=== PATIENT | male | born 1985 | race American Indian/Alaskan Native ===

== ENCOUNTER 2018-07-12 08:38 | Emergency (ER) | payer BC, OTHER | END 2018-07-12 10:27 | disposition home or self-care (01) | LOC: JERFT 08:38 ==

== ENCOUNTER 2018-07-13 21:36 | Emergency (ER) | payer BC | END 2018-07-13 22:07 | disposition home or self-care (01) | LOC: JERFT 21:36 ==

== ENCOUNTER 2020-04-23 15:51 | Emergency (ER) | payer BC ==
[2020-04-23 16:15] VITALS: BP 126/82; PULSE 94; TEMP 98.2; BMI 28.1
[2020-04-23] MEDS ORDERED: LIDOCAINE HCL 1%, 10 MG/ML (20ML VIAL) ONE ×2 (16:47→17:03)
[2020-04-23] MEDS ORDERED: LIDOCAINE HCL 1%, 10 MG/ML (50 mL VIAL) SQ ONE (16:47)
== END 2020-04-23 17:56 | disposition home or self-care (01) ==
LOC: FER 15:51
DX: L72.3 Sebaceous cyst (principal)
CPT/HCPCS: 99284-25

== ENCOUNTER 2020-08-21 23:03 | Emergency (ER) | payer BC ==
[2020-08-21 23:14] VITALS: BP 111/68; PULSE 112; TEMP 100; BMI 28.1
== END 2020-08-21 23:33 | disposition home or self-care (01) ==
LOC: FER 23:03
DX: S61.412A Laceration without foreign body of left hand, initial encounter (principal)
CPT/HCPCS: 99281-25

== ENCOUNTER 2020-12-28 12:53 | Emergency (ER) | payer OTHER, BC ==
[2020-12-28 13:15] VITALS: BP 130/82; PULSE 102; TEMP 97.8; BMI 28.1
== END 2020-12-28 13:24 | disposition home or self-care (01) ==
LOC: JERFT 12:53
DX: S09.90XA Unspecified injury of head, initial encounter (principal); S00.83XA Contusion of other part of head, initial encounter; W22.8XXA Striking against or struck by other objects, initial encounter
CPT/HCPCS: 99281-25

== ENCOUNTER 2021-04-07 10:10 | Emergency (ER) | payer OTHER, BC ==
[2021-04-07 10:33] VITALS: BP 129/85; PULSE 105; TEMP 97.9; BMI 27.3
[2021-04-07] MEDS ORDERED: DIPHTH,PERTUSS(ACELL),TET 0.5 ML DISP.SYRIN IM ONE ×2 (10:51→11:21)
== END 2021-04-07 11:27 | disposition home or self-care (01) ==
LOC: JER 10:10 → JERFT 10:10
PROC: 3E0234Z Introduction of Serum, Toxoid and Vaccine into Muscle, Percutaneous Approach (ICD-10-PCS; principal; 2021-04-07)
DX: S60.416A Abrasion of right little finger, initial encounter (principal)
CPT/HCPCS: 73130-TC-RT-FY; 90715; 99283-25

== ENCOUNTER 2021-04-09 17:17 | Emergency (ER) | payer BC, OTHER ==
[2021-04-09 17:29] VITALS: BP 126/80; PULSE 100; TEMP 99; BMI 27.3
[2021-04-09] MEDS ORDERED: LIDOCAINE 5% TOPICAL PATCH TP ONE (18:16)
[2021-04-09] MEDS ORDERED: IBUPROFEN 400 MG TABLET (FP) PO ONE ×2 (18:24→18:32)
[2021-04-09] MEDS ORDERED: LIDOCAINE 5% TOPICAL PATCH ONE (18:32)
[2021-04-09] MEDS ORDERED: LIDOCAINE PATCH REMOVAL MC SCH (22:00)
== END 2021-04-09 19:12 | disposition home or self-care (01) ==
LOC: FER 17:17 → SUPCPDRO 17:17 → FER 19:12
DX: R07.81 Pleurodynia (principal)
CPT/HCPCS: 71046-TC-FY; 99283-25

== ENCOUNTER 2021-05-27 11:56 | Emergency (ER) | payer BC ==
[2021-05-27 12:00] VITALS: BP 136/91; PULSE 82; TEMP 98; BMI 27.3
== END 2021-05-27 17:22 | disposition home or self-care (01) ==
LOC: JERFT 11:56
DX: F41.9 Anxiety disorder, unspecified (principal); F32.9 Major depressive disorder, single episode, unspecified
CPT/HCPCS: 99281-25

== ENCOUNTER 2021-12-26 19:45 | Emergency (ER) | payer BC ==
[2021-12-26 20:03] VITALS: BP 139/96; PULSE 96; RESP 18; TEMP 98; BMI 24.3
[2021-12-26] MEDS ORDERED: LIDOCAINE 5% TOPICAL PATCH TP ONE (20:10)
[2021-12-26] MEDS ORDERED: IBUPROFEN 600 MG TABLET (FP) PO ONE ×2 (20:10→20:13)
[2021-12-26] MEDS ORDERED: LIDOCAINE 5% TOPICAL PATCH ONE (20:13)
[2021-12-26] MEDS ORDERED: LIDOCAINE PATCH REMOVAL MC SCH (22:00)
== END 2021-12-26 20:21 | disposition home or self-care (01) ==
LOC: FER 19:45
DX: S39.012A Strain of muscle, fascia and tendon of lower back, initial encounter (principal)
CPT/HCPCS: 99283-25